=== PATIENT | female | born 1995 | race Caucasian/White ===

== ENCOUNTER 2019-08-15 19:27 | Emergency (ER) | payer BC, SELFPAY ==
[2019-08-15 19:32] VITALS: BP 159/99; PULSE 120; RESP 22; TEMP 38.1; O2SAT 100
--- NOTE | 2019-08-15 20:14 | ED_ITS ---
HPI - Anxiety <MYRIAM Gil - Last Filed: 08/15/19 21:43> General Chief Complaint: Anxiety Stated Complaint: anxiety attack Time Seen by Provider: 08/15/19 19:44 Source: patient Mode of arrival: Ambulatory Limitations: no limitations History of Present Illness HPI narrative: This is a 24-year-old female, nonsmoker, who presents with spouse with chief complain of anxiety, fever and sore throat. 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 Patient is a new teacher and in charge of 22 children is very overwhelmed from work. She has been having chest tightness, had hyperventilation since yesterday and she was able to calm herself down. She reports recurring symptoms today. Patient does not have known diagnosis of anxiety or panic attacks in the past but had similar symptoms. Patient also started having fever, chills with mild cough and achy body since this afternoon with sore throat, runny nose as of yesterday. One of her coworkers had recent strep throat. Pain increases with eating and drinking. Patient had not receive flu vaccination this season. Related Data Previous Rx's Medication Instructions Recorded lorazepam [Ativan] 0.5 mg PO Q12H PRN #7 tab 08/15/19 Review of Systems <MYRIAM Gil - Last Filed: 08/15/19 21:43> Review of Systems Narrative: General: Reports chills since this abdominal. HEENT: Reports sore throat. Denies sinus pain, ear pain, hurts to swallow, dizziness. Respiratory: Mild cough. Denies dyspnea, wheezing, hemoptysis, sputum. Cardiovascular: Chest tightness. Denies palpitations, orthopnea, edema. Gastrointestinal: Denies nausea, vomiting, abdominal pain, diarrhea, constipation, melena. : Denies dysuria, frequency, incontinence, hematuria, urinary retention. Musculoskeletal: Body aches. Denies weakness, joint pain or bony pain. Skin: Denies rash, skin lesions, or other. Neurologic: Full anxious and tearful. Denies weakness, headache, numbness, change in speech, confusion, seizures, incoordination. Psychiatric: No concerning psychosocial issues. 12-point review of systems is negative except for those stated above. Patient History <MYRIAM Gil - Last Filed: 08/15/19 21:43> Medical History Family history non-contributory (Acute) Surgical History No pertinent past surgical history (Acute) Social History Smoking Status: Never smoker alcohol intake frequency: a few times a month Substance Use Type: does not use Exam <MYRIAM Gil - Last Filed: 08/15/19 21:43> Narrative Exam Narrative: GEN: Alert, oriented x 3, well nourished, and in moderate distress, tearful. Head: Normal cephalic, atraumatic. No scalp or temporal tenderness, palpable mass or rash. EYES: Pupils are equal, round, and reactive to light and accommodation. Extraocular muscles are intact bilaterally. There is no subconjunctival hemorrhage, exudate and sclera non-icteric. ENT: Bilateral auditory canals and tympanic membranes clear. Hearing grossly intact. Nose without bleeding, purulent discharge or deviation. Facial sinuses nontender to palpate. Mucous membrane moist, no mucosal lesion. Throat without significant erythema, tonsillar hypertrophy or exudate. Uvula in midline, airway patent. Neck: Trachea in midline. No JVD. Tender to palpate cervical lymph nodes with mild swelling. No masses or thyroid megaly. Supple, non-tender and no meningeal signs. CARDIAC: Normal tachy rate and rhythm without murmurs, gallops, or rubs. No chest wall tenderness. No peripheral edema, cyanosis or pallor. Capillary refill is less than 2 seconds. RESPIRATORY: Lungs are clear to auscultate bilaterally. No cough, wheezes, rales, or rhonchi. No stridor, respiratory distress, increase work of breathing, or accessary muscle used. ABD: Abdomen soft, nontender and non-distended. No guarding or rebound tenderness to palpate. Bowel sounds are normal in all 4 quadrants. There is no palpable masses or organomegaly. EXT: Full painless ROM of all extremities with no loss of sensation, strength, effusion or edema. SKIN: Hot to touch, dry, normal color for patient. No erythema, lesions or rash over visible areas. BACK: Nontender without deformity or crepitance. No flank tenderness. NEUROLOGICAL: Alert and oriented to place, time and person. Sensation and motor function intact bilaterally. No facial droops, dysphasia. PSYCHIATRIC: Good judgement and reason, without hallucinations. Patient break down in tears and crying when we talked about stress factors in life such work. Patient not suicidal. Initial Vital Signs Initial Vital Signs: Vital Signs Temperature 100.6 F H 08/15/19 19:32 Pulse Rate 120 H 08/15/19 19:32 Respiratory Rate 22 08/15/19 19:32 Blood Pressure 159/99 H 08/15/19 19:32 Pulse Oximetry 100 08/15/19 19:32 <Katey Baldwin DO - Last Filed: 08/16/19 02:10> Initial Vital Signs Initial Vital Signs: Vital Signs Temperature 100.6 F H 08/15/19 19:32 Pulse Rate 120 H 08/15/19 19:32 Respiratory Rate 22 08/15/19 19:32 Blood Pressure 159/99 H 08/15/19 19:32 Pulse Oximetry 100 08/15/19 19:32 Course <MYRIAM Gil - Last Filed: 08/15/19 21:43> Orders Ordered: ED Orders 08/15/19 19:35 Influenza A and B by PCR Rapid Stat Strep Grp A by PCR Rapid Stat Discontinued Medications Acetaminophen (Tylenol) 975 mg PO NOW ONE Stop: 08/15/19 20:12 Last Admin: 08/15/19 20:19 Dose: 975 mg Documented by: JOSE MARIA Ibuprofen (Advil) 400 mg PO NOW ONE Stop: 08/15/19 20:12 Last Admin: 08/15/19 20:18 Dose: 400 mg Documented by: JOSE MARIA Lorazepam (Ativan) 0.5 mg PO NOW ONE Stop: 08/15/19 20:12 Last Admin: 08/15/19 20:18 Dose: 0.5 mg Documented by: JOSE MARIA Penicillin G Benzathine (Bicillin L-A) 1,200,000 unit IM NOW ONE Stop: 08/15/19 20:31 Last Admin: 08/15/19 20:45 Dose: 1,200,000 unit Documented by: LREED Vital Signs Vital signs: Vital Signs - 8 hr 08/15/19 19:32 08/15/19 21:25 Temperature 100.6 F H 99.2 F Pulse Rate 120 H 99 H Respiratory Rate 22 20 Blood Pressure 159/99 H Blood Pressure [Left Arm] 114/74 Pulse Oximetry 100 99 <Katey Baldwin DO - Last Filed: 08/16/19 02:10> Orders Ordered: ED Orders 08/15/19 19:35 Influenza A and B by PCR Rapid Stat Strep Grp A by PCR Rapid Stat Discontinued Medications Acetaminophen (Tylenol) 975 mg PO NOW ONE Stop: 08/15/19 20:12 Last Admin: 08/15/19 20:19 Dose: 975 mg Documented by: JOSE MARIA Ibuprofen (Advil) 400 mg PO NOW ONE Stop: 08/15/19 20:12 Last Admin: 08/15/19 20:18 Dose: 400 mg Documented by: JOSE MARIA Lorazepam (Ativan) 0.5 mg PO NOW ONE Stop: 08/15/19 20:12 Last Admin: 08/15/19 20:18 Dose: 0.5 mg Documented by: JOSE MARIA Penicillin G Benzathine (Bicillin L-A) 1,200,000 unit IM NOW ONE Stop: 08/15/19 20:31 Last Admin: 08/15/19 20:45 Dose: 1,200,000 unit Documented by: MACHO Vital Signs Vital signs: Vital Signs - 8 hr 08/15/19 19:32 08/15/19 21:25 Temperature 100.6 F H 99.2 F Pulse Rate 120 H 99 H Respiratory Rate 22 20 Blood Pressure 159/99 H Blood Pressure [Left Arm] 114/74 Pulse Oximetry 100 99 MDM - Anxiety <MYRIAM Gil - Last Filed: 08/15/19 21:43> Differential Diagnosis Differential diagnosis: Likely acute anxiety and other (Fever, strep throat, flu) Medical Records Attestation: I reviewed the patient's medical records. Lab Data Attestation: I reviewed the patient's lab results. 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 Patient was thinking about having a conference for a child who has severe behavior problems and started to feel chest tightness, breathing difficulty with hyperventilation. Patient was able to control her symptoms yesterday by deep breathing exercises. She had recurring symptoms today. Also, she noticed chills and body aches which started this afternoon. She states she had sore throat for 2 days and her co-worker is out from work with strep throat infection. Rapid strep culture came back as p ositive. She is able to tolerate fluids without difficulty. Her pain and fever has been managed with Tylenol and Motrin while in ED. She received Bicillin IM injection as a 1 time dose treatment. Patient also was medicated with Ativan and she felt improvement in her symptoms. She is being discharged to home with a few tabs of Ativan and was advised to follow up with her primary care physician to discuss her symptoms and for alternative treatment since Ativan is not suggested for long-term use. Patient advised to continue with deep breathing exercises, guided imagery, good night's sleep, exercise and etc. Workup off note was provided for Sunday. Return precautions and methods to prevent transmission of strep infection were discussed with the patient and verbalized understanding and agrees with the treatment plan. <Katey Baldwin, - Last Filed: 08/16/19 02:10> Lab Data Labs: Lab Results 08/15/19 Range/Units 19:35 Influenza A & B (PCR) Negative (Negative) Group A Strep (PCR) Positive H Discharge Plan Departure Patient Disposition: Home Clinical Impression: Acute streptococcal pharyngitis, Anxiety Discharge Date/Time: 08/15/19 21:38 Instructions: DI for Strep Throat, DI for Anxiety -- Adult Activity Restrictions/Additional Instructions: You have been diagnosed with [strep pharyngitis, anxiety due to situational stress]. What to do: *Take your medications as directed. You can take [id number] Tylenol and or Motrin as needed for discomfort and fever. Ativan is for anxiety and take it as needed. This medication may cause drowsiness so please do not drive, drink alcohol or operate heavy equipments. Please continue with deep breathing exercise, guided imagery, when you feel anxious or have panic attacks. *Follow up with your primary care provider in 2-3 days, call for an appointment. Let them know you were seen in the ED and that we asked you to be seen in follow up. *Return to ED if you have any new, worsening, or concerning symptoms, such as [worsening pain, fever not managed with medications, unable to tolerate fluids, breathing difficulty, chest pain]. Prescriptions: New lorazepam [Ativan] 0.5 mg tablet 0.5 mg PO Q12H PRN (Reason: anxiety) Qty: 7 RF: 0 Referrals: Ryan Garcia) [Other] Stand Alone Forms: Work Release Note
[2019-08-15 20:18] LABS: Strep Grp A by PCR Rapid Positive
[2019-08-15] MEDS: LORazepam 0.5 MG TABLET PO (20:18)
[2019-08-15] MEDS: IBUPROFEN 400 MG TABLET PO (20:18)
[2019-08-15 20:19] LABS: Influenza A and B by PCR Rapid Negative (Negative)
[2019-08-15] MEDS: ACETAMINOPHEN 325 MG TABLET 975 MG PO (20:19)
[2019-08-15] MEDS: PENICILLIN G BENZATHINE 1,200,000 UNIT/2 ML SYRINGE 1200000 UNIT IM (20:45)
[2019-08-15 21:25] VITALS: BP 114/74; PULSE 99; RESP 20; TEMP 37.3; O2SAT 99
== END 2019-08-15 21:38 | disposition home or self-care (01) ==
PROVIDERS: Emergency Provider Nurse Practitioner Family
DX: J02.0 Streptococcal pharyngitis (principal); F41.9 Anxiety disorder, unspecified
CPT/HCPCS: 87502; 87651; 96372; 99282; 99283; J0561